=== PATIENT | female | born 1990 | race Caucasian/White ===

== ENCOUNTER → 2018-11-08 | Outpatient (CLI) | payer SELFPAY ==
--- NOTE | 2018-11-09 08:53 | PCVCIMAG ---
APPROVED REPORT Study performed: 11/08/2018 14:40:47 Exam: Stress Echocardiogram Indication: Chest pain , Palpitations, Abnormal EKG Patient Location: Echo lab Stress Nurse: Camryn Sykes RN Room #: 2 Status: routine Ht: 5 ft 4 in HR: 82 bpm BP: 120/76 mmHg Rhythm: NSR Medical History Medical History: Palpitations,near syncope Previous Cardiac Procedures: none Pretest Chest Pain Characteristics: No chest pain Exercise History: Physically active Procedure The patient underwent an Exercise Stress Test using the Corey Protocol. Blood pressure, heart rate, and EKG were monitored. An Echocardiogram was performed by fuel technician in four stages in quad fashion. At peak stress, four selected images were obtained and placed side by side with resting images for comparison. Stress Test Details Stress Test: Exercise stress testing was performed using a Corey protocol. HR Resting HR: 82 bpmMax Heart Rate (APMHR): 190 bpm Max HR Achieved: 166 bpmTarget HR (85% APMHR): 161 bpm % of APMHR: 87 Recovery HR: 105 bpm HR response to stress: Normal HR response to stress BP Resting BP: 120/76 mmHg Max BP: 138/78 mmHg Recovery BP: 112/78 mmHg BP response to stress: Normal blood pressure response to stress. ECG Resting ECG: Sinus Rhythm, nonspecific ST-T abnormalities Stress ECG: Sinus Rhythm, nonspecific ST-T abnormalities Arrhythmia: none Recovery ECG: Sinus Rhythm Recovery ST Change: Non-ischemic Recovery Arrhythmia: None Clinical Reason for Termination: Maximal effort Stress Symptoms: fatigue Exercise duration: 12 min 51 sec Highest Stage Achieved: Stage 5: 5.0 mph at 18% grade. Exercise capacity: 16.5 METs Overall Exercise Capacity for Age: Good Scale: Active Angina Score: None No complications. Stress ECG Conclusion The patient exercised according to the COREY protocol for 12:51 mins; achieving a work level of 16.5 METS. The resting heart rate of 82 bpm attila to a maximum heart rate of 166 bpm. This value represent 87% of the maximal, age-predicted heart rate. The resting blood pressure of 120/76 mmHg, attila to a maximum blood pressure of 138/78 mmHg. The exercise test was stopped due to fatigue . Pre-Stress Echo The resting Echocardiogram showed normal left ventricular contractility with an estimated Ejection Fraction of about 55-60%. Normal wall motion in all segments on baseline images. Post-Stress Echo The stress Echocardiogram showed normal left ventricular contractility with an estimated Ejection Fraction of about 65-70%. Normal augmentation of wall motion in all segments on post stress images. Clinical No clinical or ECG evidence for ischemia. Conclusion Clinical Response: Non-ischemic Exercise Capacity: Superior Stress ECG Response: Equivocal Stress Echo Images: Non-ischemic No clinical or echocardiographic evidence for ischemia. No echocardiographic evidence for exercise induced ischemia. Normal stress echocardiogram with maximal exercise stress. Nondiagnostic EKG changes are seen. 1. Low Risk Study No prior study available for comparison. <Conclusion> No clinical or echocardiographic evidence for ischemia. No echocardiographic evidence for exercise induced ischemia. Normal stress echocardiogram with maximal exercise stress. Nondiagnostic EKG changes are seen. 1. Low Risk Study
== END | disposition home or self-care (01) ==
LOC: PCVCIMAG 14:10
PROVIDERS: ATTEND Internal Medicine
DX: R07.9 Chest pain, unspecified (principal); R00.2 Palpitations; F41.9 Anxiety disorder, unspecified; R94.31 Abnormal electrocardiogram [ECG] [EKG]
CPT/HCPCS: 93325; 93351